=== PATIENT | female | born 1980 | race Caucasian/White ===

== ENCOUNTER → 2019-05-07 | Outpatient (CLI) | payer BC ==
[~2019-05-07] MED LIST: ASPIR-LOW81 MG PO; LORATADINE10 MG PO; LORTAB 5/500 501 TAB PO; RITALIN-SR20 MG PO
== END ==
LOC: MHCPAIN 14:39
DX: G89.29 Other chronic pain (principal); M47.817 Spondylosis without myelopathy or radiculopathy, lumbosacral region; M54.16 Radiculopathy, lumbar region; M53.3 Sacrococcygeal disorders, not elsewhere classified
CPT/HCPCS: G0463

== ENCOUNTER → 2019-05-09 | Outpatient (CLI) | payer BC | LOC: MHCPAIN 13:46 | DX: M47.817 Spondylosis without myelopathy or radiculopathy, lumbosacral region (principal); M54.16 Radiculopathy, lumbar region | CPT/HCPCS: J1100; Q9967 ==

== ENCOUNTER → 2019-05-28 | Outpatient (CLI) | payer BC | LOC: MHCPAIN 14:20 | DX: G89.29 Other chronic pain (principal); M47.817 Spondylosis without myelopathy or radiculopathy, lumbosacral region; M54.16 Radiculopathy, lumbar region; M53.3 Sacrococcygeal disorders, not elsewhere classified | CPT/HCPCS: G0463 ==

== ENCOUNTER → 2019-05-30 | Outpatient (CLI) | payer BC | LOC: MHCPAIN 13:20 | DX: M47.817 Spondylosis without myelopathy or radiculopathy, lumbosacral region (principal); M54.16 Radiculopathy, lumbar region | CPT/HCPCS: J1100; Q9967 ==

== ENCOUNTER → 2019-06-19 | Outpatient (CLI) | payer BC | LOC: MHCPAIN 12:26 | DX: G89.29 Other chronic pain (principal); M47.817 Spondylosis without myelopathy or radiculopathy, lumbosacral region; M53.3 Sacrococcygeal disorders, not elsewhere classified | CPT/HCPCS: G0463 ==

== ENCOUNTER → 2019-06-27 | Outpatient (CLI) | payer BC | LOC: MHCPAIN 08:28 | DX: M47.817 Spondylosis without myelopathy or radiculopathy, lumbosacral region (principal); M54.16 Radiculopathy, lumbar region ==

== ENCOUNTER → 2019-07-22 | Outpatient (CLI) | payer BC | LOC: MHCPAIN 13:28 | DX: M48.07 Spinal stenosis, lumbosacral region (principal); M54.16 Radiculopathy, lumbar region ==

== ENCOUNTER → 2019-08-22 | Outpatient (CLI) | payer BC | LOC: MHCPAIN 12:21 | DX: M12.88 Other specific arthropathies, not elsewhere classified, other specified site (principal); M54.5 Low back pain | CPT/HCPCS: J1100; J2250; J2405; J3010 ==

== ENCOUNTER → 2019-08-29 | Outpatient (CLI) | payer BC | LOC: MHCPAIN 07:45 | DX: M12.88 Other specific arthropathies, not elsewhere classified, other specified site (principal); M54.5 Low back pain | CPT/HCPCS: J1100; J2250; J2405; J3010 ==